=== PATIENT | female | born 1955 | race Caucasian/White ===

== ENCOUNTER 2019-05-28 08:37 | Emergency (ER) | payer MEDICARE ==
[~2019-05-28] VITALS: Ht 157.5 cm; Wt 81.7 kg
[2019-05-28 09:06] LABS: ABSOLUTE BASOPHILS 0.1 thou/uL (0.0-0.2); ABSOLUTE EOSINOPHILS 0.3 thou/uL (0.0-0.7); ABSOLUTE LYMPHOCYTES 2.1 thou/uL (0.8-5.3); ABSOLUTE MONOCYTES 0.6 thou/uL (0.0-1.2); ABSOLUTE NEUTROPHILS 3.4 thou/uL (1.6-8.1); BASOPHILS 1.3 %; EOSINOPHILS 5.1 %; HEMATOCRIT 42.5 % (37.0-47.0); HEMOGLOBIN 14.3 gm/dL (12.0-15.0); LYMPHOCYTES 31.8 %; MCH 29.5 pg (26.0-34.0); MCHC 33.7 g/dL (28.0-37.0); MCV 87.5 fL (80.0-100.0); MONOCYTES 9.8 %; MPV 9.4 fl. (7.2-11.1); NUCLEATED RBCS 0 /100WBC; PLATELET COUNT* 217 thou/uL (150-400); RBC 4.86 mil/uL (4.20-5.00); RDW-CV 14.3 % (10.5-14.5); WBC 6.5 thou/uL (4.0-11.0)
[2019-05-28 09:23] LABS: ANION GAP 7 mmol/L (7-16); BUN 15 mg/dL (7-18); CALCIUM 9.2 mg/dL (8.5-10.1); CHLORIDE 103 mmol/L (98-107); CO2 30 mmol/L (21-32); CREATININE 1.1 mg/dL (0.6-1.3); GLUCOSE 89 mg/dL (70-99); POTASSIUM 3.8 mmol/L (3.5-5.1); SODIUM 140 mmol/L (136-145)
[2019-05-28 09:37] LABS: ALBUMIN 3.7 g/dL (3.4-5.0); ALKALINE PHOSPHATASE 95 U/L (46-116); CK-MB MASS 1.1 ng/mL (<0.5-3.6); SGOT 17 U/L (15-37); SGPT 30 U/L (30-65); TOTAL BILIRUBIN 0.4 mg/dL (<0.1-1.0); TOTAL PROTEIN 7.6 g/dL (6.4-8.2); TROPONIN-I LEVEL <0.06 ng/mL (<0.06)
[2019-05-28 11:42] VITALS: BP 127/66
--- NOTE | 2019-05-28 14:51 | EKG ---
[place] [address] ELECTROCARDIOGRAM REPORT Name: VLADIMIR POTTER Room: [facility]#: [id number] Admission: 05/28/19 Attend Phys: Discharge: 05/28/19 Date of : 51 Report #: [id number] THIS REPORT FOR: //name// [facility] ED Test Date: 2019-05-28 Test Time: 08:44:56 Pat Name: VLADIMIR POTTER Department: Room: Gender: F [employer]: : [id number] Requested By: Raudel Steinberg Order Number: [id number] MD: Vito Monique Measurements Intervals [place] Rate: 63 P: 33 OK: 181 QRS: 34 QRSD: 94 T: 42 QT: 383 QTc: 393 Interpretive Statements Sinus rhythm Inferior infarct, old No previous ECG available for comparison Electronically Signed On 05-28-2019 14:51:19 CDT by Vito Monique [email or web address] <ELECTRONICALLY SIGNED> By: Vito Monique MD, [facility] 05/28/19 1451 0844 0844 Vito Monique MD, FACC /EPI
== END 2019-05-28 11:43 | disposition home or self-care (01) ==
LOC: M.ERS 08:37
PROVIDERS: Emergency Medicine
DX: R07.89 Other chest pain (principal); R51 Headache; Z90.49 Acquired absence of other specified parts of digestive tract; Z90.89 Acquired absence of other organs

== ENCOUNTER 2021-01-21 19:43 | Emergency (ER) | payer MEDICARE ==
[~2021-01-21] VITALS: Ht 160 cm; Wt 90.7 kg
[2021-01-21] MEDS ORDERED: PROTONIX40 M2 (20:07)
[2021-01-21] MEDS ORDERED: PREDNISONE50 MG PO (21:01)
[2021-01-21] MEDS ORDERED: EPIPEN 2-P0.3 MG/0.3 IM (21:01)
[2021-01-21 21:10] VITALS: BP 170/51
== END 2021-01-21 21:10 | disposition home or self-care (01) ==
LOC: M.ERS 19:43
DX: R06.02 Shortness of breath (principal); T78.49XA Other allergy, initial encounter; Z90.89 Acquired absence of other organs; Z90.49 Acquired absence of other specified parts of digestive tract; X58.XXXA Exposure to other specified factors, initial encounter